=== PATIENT | female | born 1960 | race Caucasian/White ===

== ENCOUNTER → 2017-01-03 | Outpatient (CLI) | payer OTHER ==
[~2017-01-03] MED LIST: BUPR8SUB19 PO; LEVO50TA PO; LIOT50TA PO; NAPR1TAB9 PO
[2017-01-03 10:15] LABS: BASO % 0.4 %; BASO ABS # 0.02 K/uL (0-0.2); COMPLETE YES; EOS % 3.4 %; HEMATOCRIT 39.7 % (37-47); IG% 0.2 %; LYMPH % 43.3 %; LYMPH ABS # 2.26 K/uL (1.2-3.4); MEAN CELL VOLUME 90.4 fL (80-100); MEAN CORPUSCULAR HEMOGLOBIN 30.3 pg (25-34); MEAN CORPUSCULAR HGB CONC 33.5 g/dl (32-36); MEAN PLATELET VOLUME 9.9 fL (7.4-10.4); MONO % 9.8 %; NEUT % 42.9 %; PLATELET COUNT 208 K/uL (130-400); RED BLOOD COUNT 4.39 M/uL (4.2-5.4); WHITE BLOOD COUNT 5.22 K/uL (4.8-10.8)
[2017-01-03 13:08] LABS: CALCIUM 8.8 mg/dl (8.5-10.1)
[2017-01-03 13:14] LABS: ALT/SGPT 32 U/L (12-78); BLOOD UREA NITROGEN 15 mg/dl (7-18); BUN/CREATININE RATIO 24.8 (10-20); CARBON DIOXIDE 27 mmol/L (21-32); CHLORIDE 107 mmol/L (98-107); CHOLESTEROL 184 mg/dl (0-200); GLUCOSE 93 mg/dl (70-99); POTASSIUM 4.5 mmol/L (3.5-5.1); SODIUM 141 mmol/L (136-145); TRIGLYCERIDES 56 mg/dl (0-150); VERY LOW DENSITY LIPOPROT CALC 11 mg/dl
[2017-01-03 13:24] LABS: ALB/GLOB RATIO 1.1 (0.9-2); ALKALINE PHOSPHATASE 85 U/L (45-117); AST/SGOT 26 U/L (15-37); CHOLESTEROL/HDL RATIO 2.6; HDL CHOLESTEROL 70 mg/dl; LDL CHOLESTEROL CALCULATED 103 mg/dl; THYROID STIMULATING HORMONE 0.033 uIu/ml (0.300-4.500)
[2017-01-04 13:56] LABS: THYROGLOBULIN 0.1 NG/ML (2.8-40.9)
== END | disposition home or self-care (01) ==
LOC: C.LAB1850 09:16
PROVIDERS: ATTEND Internal Medicine
DX: E89.0 Postprocedural hypothyroidism (principal); G89.4 Chronic pain syndrome; E55.9 Vitamin D deficiency, unspecified; G57.91 Unspecified mononeuropathy of right lower limb

== ENCOUNTER → 2017-01-04 | Outpatient (CLI) | payer OTHER ==
--- NOTE | 2017-01-04 14:58 | DIAGNOSTIC IMAGING REPORT ---
BILATERAL LOWER EXTREMITY VENOUS DOPPLER HISTORY: R60.0 Bilateral leg [id number] COMPARISON STUDY: Left leg venous Doppler 03/03/2013. FINDINGS: There is normal compressibility, flow, and augmentation within the bilateral lower extremity deep venous systems. IMPRESSION: No DVT within the right or left lower extremity. Electronically signed by: Shaan Lopez M.D. 01/04/2017 2:55 PM Dictated Date/Time: 01/04/2017 2:55 PM
== END | disposition home or self-care (01) ==
LOC: C.ULTR 14:19
PROVIDERS: ATTEND Internal Medicine
DX: R60.0 Localized edema (principal); M79.605 Pain in left leg; M79.604 Pain in right leg

== ENCOUNTER → 2017-07-05 | Outpatient (CLI) | payer OTHER ==
[2017-07-05 15:14] LABS: THYROID STIMULATING HORMONE 12.7 uIu/ml (0.300-4.500)
== END | disposition home or self-care (01) ==
LOC: C.LAB1850 13:54
PROVIDERS: ATTEND Internal Medicine
DX: E89.0 Postprocedural hypothyroidism (principal)

== ENCOUNTER 2018-04-13 13:12 | Emergency (ER) | payer OTHER ==
[~2018-04-13] VITALS: Ht 162.6 cm; Wt 81.0 kg
[~2018-04-13 13:12] MED LIST changes: +BUPR8MIS SL; -BUPR8SUB19 PO; +CYTM25 PO; +GABA-1219 PO; +LEVO100T7 PO; -LEVO50TA PO; -LIOT50TA PO; -NAPR1TAB9 PO; +VNTHFA/IN INH
[2018-04-13 13:14] VITALS: Ht 162.6 cm; Wt 81.0 kg
[2018-04-13] MEDS ORDERED: TRAMADOL HCL 50 MG TAB PO STA (13:33)
[2018-04-13] MEDS ORDERED: ACETAMINOPHEN 500 MG TAB PO STA (13:33)
[2018-04-13] MEDS ORDERED: ASPI81TA28 PO (13:46)
--- NOTE | 2018-04-13 13:55 | EMERGENCY ROOM VISIT NOTE ---
History Report prepared by Sylvain: Marielle Garduno Under the Supervision of: Dr. Stephen Hernandez M.D. First contact with patient: 13:19 Chief Complaint: FOOT PAIN Stated Complaint: PAIN/SWELLING R FOOT History of Present Illness The patient is a 57 year old white female with a past medical history of partial phalangeal amputation of both feet who presents to the ED with a cc of constant R foot pain and swelling beginning yesterday morning. She describes the pain as a pressure and notes it is relieved by Ibuprofen. The patient reports she had partial phalangeal amputation of both feet about 5 weeks ago, and completed 23 days of antibiotics 2 weeks ago. She notes she is not currently taking any antibiotics. She reports she saw Dr. Johnson of [facility] 5 days ago to have the last of her stitches out, and notes he performed a debridement of her R foot at that time. Source of History: patient Onset: yesterday morning Position: foot (right) Quality: pressure, other (swelling) Timing: constant Modifying Factors (Relieving): ibuprofen Review of Systems See HPI for pertinent positives and negatives. A total of ten systems were reviewed and were otherwise negative. Past Medical & Surgical Medical Problems: (1) Appendectomy (2) Arthritis (3) Asthma (4) Bronchitis (5) Cancer (6) section (7) CVA (8) Knee surgery (9) Osteomyelitis of ankle or foot, right, acute (10) Spinal fusion (11) Strep throat (12) Thyroid cancer (13) Thyroidectomy (14) Yeast infection of the skin Family History No pertinent family history stated. Social History Smoking Status: Current Every Day Smoker Alcohol Use: none Drug Use: other Marital Status: Housing Status: lives with family Occupation Status: employed Current/Historical Medications Scheduled Aspirin (Aspirin Ec), 81 MG PO DAILY Buprenorphine Hcl-Naloxone Hcl (Suboxone 8-2 Mg), 3 TABS SL DAILY Levothyroxine Sodium (Levothyroxine Sodium), 100 MCG PO DAILY Liothyronine Sodium (Liothyronine Sodium), 25 MCG PO DAILY Scheduled PRN Albuterol Hfa (Ventolin Hfa), 2 PUFF INH Q4H PRN for Shortness of Breath Allergies Coded Allergies: Amoxicillin (Verified Allergy, Unknown, rash, 04/13/18) Clavulanic Acid (Verified Allergy, Unknown, rash, 04/13/18) Physical Exam Vital Signs Date Time Temp Pulse Resp B/P (MAP) Pulse Ox O2 Delivery O2 Flow Rate FiO2 04/13/18 15:00 36.7 87 20 126/78 96 04/13/18 13:14 36.7 87 20 126/78 96 Room Air Physical Exam GENERAL: Awake, alert, well-appearing, NAD HENT: Normocephalic, atraumatic. Poor dentition. EYES: Normal conjunctiva. Sclera non-icteric. PERRL. No anisocoria. NECK: Supple. No nuchal rigidity. FROM. RESPIRATORY: CTAB, no rhonchi, wheezing, crackles CARDIAC: RRR, no MRG ABDOMEN: Soft, NTND, BS+ MSK: No chest wall TTP, no LE edema. LE: Partial phalangeal amputation of second digit L foot, well-healing. 2nd and 3rd partial phalangeal amputation of R foot. Mild TTP over dorsum of R foot, mild erythema NEURO: GCS 15, CN 2-12 intact, moves all 4s on command SKIN: No rash or jaundice noted. Medical Decision & Procedures ER Provider Diagnostic Interpretation: Radiology results as stated below per my review and radiologist interpretation: R FOOT MIN 3 VIEWS ROUTINE CLINICAL HISTORY: s/p debridge dorsum R foot and partial phalangeal amps 2 3 infection COMPARISON: 02/23/2018. MRI 02/25/2018. DISCUSSION: Moderate soft tissue edema about the phalanges of the second and third toes. Operative changes consistent with prior partial prior resection of the distal phalanges of the second third toes. No acute bony abnormality. Small heel spur. IMPRESSION: Soft tissue edema about the second and third phalanges of the right foot. Operative changes noted. Mild soft tissue edema. The above report was generated using voice recognition software. It may contain grammatical, syntax or spelling errors. Electronically signed by: Oren Cruz M.D. 04/13/2018 2:10 PM Dictated Date/Time: 04/13/2018 2:09 PM Laboratory Results 04/13/18 13:40 Red Blood Count 4.27, Mean Corpuscular Volume 91.8, Mean Corpuscular Hemoglobin 30.7, Mean Corpuscular Hemoglobin Concent 33.4, Mean Platelet Volume 10.2, Neutrophils (%) (Auto) 51.2, Lymphocytes (%) (Auto) 38.1, Monocytes (%) (Auto) 5.9, Eosinophils (%) (Auto) 4.3, Basophils (%) (Auto) 0.4, Neutrophils # (Auto) 3.89, Lymphocytes # (Auto) 2.90, Monocytes # (Auto) 0.45, Eosinophils # (Auto) 0.33, Basophils # (Auto) 0.03 04/13/18 13:40 Test 04/13/18 13:40 White Blood Count 7.61 K/uL (4.8-10.8) Red Blood Count 4.27 M/uL (4.2-5.4) Hemoglobin 13.1 g/dL (12.0-16.0) Hematocrit 39.2 % (37-47) Mean Corpuscular Volume 91.8 fL (80-100) Mean Corpuscular Hemoglobin 30.7 pg (25-34) Mean Corpuscular Hemoglobin Concent 33.4 g/dl (32-36) Platelet Count 223 K/uL (130-400) Mean Platelet Volume 10.2 fL (7.4-10.4) Neutrophils (%) (Auto) 51.2 % Lymphocytes (%) (Auto) 38.1 % Monocytes (%) (Auto) 5.9 % Eosinophils (%) (Auto) 4.3 % Basophils (%) (Auto) 0.4 % Neutrophils # (Auto) 3.89 K/uL (1.4-6.5) Lymphocytes # (Auto) 2.90 K/uL (1.2-3.4) Monocytes # (Auto) 0.45 K/uL (0.11-0.59) Eosinophils # (Auto) 0.33 K/uL (0-0.5) Basophils # (Auto) 0.03 K/uL (0-0.2) RDW Standard Deviation 44.5 fL (36.4-46.3) RDW Coefficient of Variation 13.4 % (11.5-14.5) Immature Granulocyte % (Auto) 0.1 % Immature Granulocyte # (Auto) 0.01 K/uL (0.00-0.02) Erythrocyte Sedimentation Rate 16 mm/hr (0-21) Anion Gap 7.0 mmol/L (3-11) Est Creatinine Clear Calc Drug Dose 85.0 ml/min Estimated GFR () 100.7 Estimated GFR (Non- 86.9 BUN/Creatinine Ratio 28.8 (10-20) Calcium Level 8.4 mg/dl (8.5-10.1) C-Reactive Protein 0.30 mg/dl (0-0.29) Laboratory results reviewed by me Medications Administered Medications (Trade) Dose Ordered Sig/Debbie Route Start Time Stop Time Status Last Admin Dose Admin Acetaminophen (Tylenol Tab) 1,000 mg NOW STAT PO 04/13/18 13:33 04/13/18 13:35 DC 04/13/18 13:40 1,000 MG Tramadol HCl (Ultram Tab) 25 mg NOW STAT PO 04/13/18 13:33 04/13/18 13:35 DC 04/13/18 13:41 25 MG ED Course 1328: The patient was evaluated in room B10. A complete history and physical exam was performed. 1445: I reevaluated the patient. Discussed results and discharge instructions: she verbalized understanding and agreement. The patient is ready for discharge. Medical Decision The patient is a 57 year old white female with a past medical history of partial phalangeal amputation of both feet who presents to the ED with a cc of constant R foot pain and swelling beginning yesterday morning. Prior records reviewed and summarized as above. Triage Nursing notes reviewed. Differential diagnosis includes but not limited to: Etiologies such as cellulitis, abscess, MRSA infection, DVT, necrotizing fasciitis, dermatitis, drug eruption, as well as others were entertained.. Patient was seen and evaluated the bedside. Patient does have a known history of prior osteomyelitis status post partial phalangeal amputation of the second and third digits of the right foot as well as the second digit of the left foot. The patient also did have some debridement of the midfoot. This was completed back in February. The patient did complete an outpatient course of p.o. antibiotics for 23 days. Patient has since completed those approximately 2 weeks prior. Patient did note some swelling his pain over the right midfoot yesterday. Patient denies any trauma. The patient does have some pain and mild swelling. There is mild erythema but I believe this is just related to some localized swelling and not related to cellulitic change. Patient denies any fevers or chills. Patient's pain has improved with ibuprofen. Patient did blood work completed along with foot films. Patient does have trace elevation in inflammatory markers ESR. The patient's white blood cell count is within normal limits. Patient's plain film does not show any acute change. Patient was told to continue take her medications and to follow-up as an outpatient. Patient was told return if she develops any fevers and there is any worsening swelling or develops an area of fluctuance over her area of prior surgical procedure. Given that the site is well-appearing and there is no drainage and no fluctuance which is localized swelling I do not believe she needs further evaluation and treatment at this time. She does not have any calf or lower extremity swelling that makes me concerned for possible DVT. Patient was counseled on rice therapy and was given an Puma wrap. Patient was given strict follow-up, discharge, and return precautions. All questions were answered. Patient was deemed suitable for outpatient follow-up at this time. Patient agreed with the plan of care and was safely discharged home. Medication Reconcilliation Current Medication List: was personally reviewed by me Blood Pressure Screening Patient's blood pressure: Normal blood pressure Blood pressure disposition: Did not require urgent referral Impression Primary Impression: Foot pain Additional Impression: Encounter for smoking cessation counseling Scribe Attestation The scribe's documentation has been prepared under my direction and personally reviewed by me in its entirety. I confirm that the note above accurately reflects all work, treatment, procedures, and medical decision making performed by me. Departure Information Dispostion Home / Self-Care Referrals RV. Obando MD (PCP) Forms HOME CARE DOCUMENTATION FORM, IMPORTANT VISIT INFORMATION Patient Instructions Anatomy Foot, ED [facility] Additional Instructions Please return to the emergency department if you have worsening or recurrent symptoms not amenable to at-home treatment. Please call for a follow-up appointment with her primary care physician. Please take your medications as prescribed. If you have other concerns and/or complaints please feel free to also call your primary care physician's office or return the ED for further evaluation, management, and treatment. You may take 600 mg Ibuprofen every 6 hours as needed for pain/fever with food unless told by your physician not to take NSAIDs. You may take tylenol 650 mg every 6 hours as needed for pain/fever unless told by your physician to not take it or have liver problems. You may take motrin and tylenol separately or at the same time. Take your medications as prescribed. You have been examined and treated today on an emergency basis only. This is not a substitute for, or an effort to provide, complete comprehensive medical care. It is impossible to recognize and treat all injuries or illnesses in a single emergency department visit. It is therefore important that you follow up closely with [facility], your PCP, and/or your specialist(s). Call as soon as possible for an appointment. Thank you for your time and consideration. I look forward to speaking with you again soon. Please don't hesitate to call us if you have any questions. Problem Qualifiers Primary Impression: Foot pain Laterality: right Qualified Codes: M79.671 - Pain in right foot
[2018-04-13 13:56] LABS: BASO % 0.4 %; BASO ABS # 0.03 K/uL (0-0.2); EOS % 4.3 %; EOS ABS # 0.33 K/uL (0-0.5); HEMATOCRIT 39.2 % (37-47); HEMOGLOBIN 13.1 g/dL (12.0-16.0); IG# 0.01 K/uL (0.00-0.02); LYMPH % 38.1 %; MEAN CELL VOLUME 91.8 fL (80-100); MEAN CORPUSCULAR HEMOGLOBIN 30.7 pg (25-34); MEAN CORPUSCULAR HGB CONC 33.4 g/dl (32-36); MEAN PLATELET VOLUME 10.2 fL (7.4-10.4); MONO % 5.9 %; MONO ABS # 0.45 K/uL (0.11-0.59); NEUT % 51.2 %; NEUT ABS # 3.89 K/uL (1.4-6.5); PLATELET COUNT 223 K/uL (130-400); RED CELL DISTRIBUTION WIDTH CV 13.4 % (11.5-14.5); RED CELL DISTRIBUTION WIDTH SD 44.5 fL (36.4-46.3); WHITE BLOOD COUNT 7.61 K/uL (4.8-10.8)
--- NOTE | 2018-04-13 14:11 | DIAGNOSTIC IMAGING REPORT ---
R FOOT MIN 3 VIEWS ROUTINE CLINICAL HISTORY: s/p debridge dorsum R foot and partial phalangeal amps 2 3 infection COMPARISON: 02/23/2018. MRI 02/25/2018. DISCUSSION: Moderate soft tissue edema about the phalanges of the second and third toes. Operative changes consistent with prior partial prior resection of the distal phalanges of the second third toes. No acute bony abnormality. Small heel spur. IMPRESSION: Soft tissue edema about the second and third phalanges of the right foot. Operative changes noted. Mild soft tissue edema. The above report was generated using voice recognition software. It may contain grammatical, syntax or spelling errors. Electronically signed by: Oren Cruz M.D. 04/13/2018 2:10 PM Dictated Date/Time: 04/13/2018 2:09 PM
[2018-04-13 14:17] LABS: CALCIUM 8.4 mg/dl (8.5-10.1); CREATININE 0.77 mg/dl (0.60-1.20); POTASSIUM 3.8 mmol/L (3.5-5.1)
[2018-04-13 15:00] VITALS: BP 126/78; PULSE 87; TEMP 36.7; O2SAT 96
== END 2018-04-13 15:00 | disposition home or self-care (01) ==
LOC: C.EDB 13:13
DX: M79.671 Pain in right foot (principal); J45.909 Unspecified asthma, uncomplicated; M19.90 Unspecified osteoarthritis, unspecified site; Z86.73 Personal history of transient ischemic attack (TIA), and cerebral infarction without residual deficits; Z98.1 Arthrodesis status; Z85.850 Personal history of malignant neoplasm of thyroid; E89.0 Postprocedural hypothyroidism; F17.210 Nicotine dependence, cigarettes, uncomplicated; Z79.82 Long term (current) use of aspirin; Z79.899 Other long term (current) drug therapy; Z88.0 Allergy status to penicillin; Z88.8 Allergy status to other drugs, medicaments and biological substances; Z89.421 Acquired absence of other right toe(s); Z89.422 Acquired absence of other left toe(s); Z71.6 Tobacco abuse counseling